=== PATIENT | female | born 1950 | race Caucasian/White ===

== ENCOUNTER → 2024-03-04 13:21 | Outpatient (BNVA) | payer MEDICARE, OTHER, SELFPAY | PROVIDERS: Family Provider Family Medicine; Visit Provider Dermatology | DX: L91.8 Other hypertrophic disorders of the skin (principal); S90.862A Insect bite (nonvenomous), left foot, initial encounter; X58.XXXA Exposure to other specified factors, initial encounter; D23.39 Other benign neoplasm of skin of other parts of face; L82.1 Other seborrheic keratosis | CPT/HCPCS: 11200; 99203 ==

== ENCOUNTER → 2025-07-11 10:33 | Outpatient (BNVA) | payer MEDICARE, OTHER, SELFPAY | PROVIDERS: Family Provider Family Medicine; Visit Provider Dermatology | DX: D23.39 Other benign neoplasm of skin of other parts of face (principal); L82.1 Other seborrheic keratosis; D18.01 Hemangioma of skin and subcutaneous tissue | CPT/HCPCS: 99213 ==